=== PATIENT | male | born 1985 | race Caucasian/White ===

== ENCOUNTER 2024-05-05 18:29 | Emergency (ER) | payer OTHER, SELFPAY ==
--- NOTE | 2024-05-05 18:33 | ED.URI ---
HPI - URI/Sore Throat General Chief Complaint: Upper Respiratory Infection Stated Complaint: Sinus Infection Time Seen by Provider: 05/05/24 18:32 Source: patient Mode of arrival: ambulatory Limitations: no limitations History of Present Illness HPI Narrative: Kyle is a 38-year-old male patient presenting to the clinic today with complaints of a possible sinus infection. He reports for the past 3 days he has had some nasal congestion but today he developed sinus pressure over the left maxillary and a fever. Temperature today in the clinic is 38.1. Cough is nonproductive. States he is blowing out some yellow nasal drainage. MD elicited complaint: sore throat and nasal congestion Related Data Allergies Allergy/AdvReac Type Severity Reaction Status Date / Time No Known Allergies Allergy Verified 05/05/24 18:48 Review of Systems Review of Systems: Pertinent positives per HPI. Patient denies any fever, chills, rash, headache, visual changes, dizziness, cough, shortness of breath, chest pain, palpitations, nausea, vomiting, diarrhea, constipation, abdominal pain, or any urinary issues. PMFSH Comments At the time of my signature, I reviewed and agree with the nursing past medical, surgical, social, and family history. There is no relevant family history pertinent to the patient complaint. Exam Narrative: General: Well-developed, well nourished, in no apparent distress Head: Normocephalic, atraumatic Eyes: Pupils equally round and reactive to light bilaterally, EOM intact, sclera and conjunctive clear, no discharge, lids normal Ears: Right TMs intact and clear, left TM intact and congested, ear canals clear, no drainage, grossly hearing normal. Nose: Nares patent, clear nasal discharge, moderate inflammation, left maxillary sinus tenderness. Mouth: Oral pharynx without lesions or masses, good dentition, MMM. Postnasal drip Neck: Supple, trachea midline, no enlargement of anterior or posterior cervical nodes, no thyroid masses or goiter palpable. Cardio: Regular rate and rhythm, s1 and s2 normal, no murmur appreciated. Resp: Clear to auscultation bilaterally, no rhonchi, rales, wheezing or rubs Course Course Emergency Course: Portions of this record may have been created with voice recognition software. Level of Care: Express Care Visit Vital Signs Vital signs: Vital Signs Temperature 38.1 C H 05/05/24 18:45 Pulse Rate 83 05/05/24 18:45 Respiratory Rate 17 05/05/24 18:45 Blood Pressure 136/79 05/05/24 18:45 Pulse Oximetry 99 05/05/24 18:45 Oxygen Delivery Room Air 05/05/24 18:45 Temperature 38.1 C H 05/05/24 18:45 Pulse Rate 83 05/05/24 18:45 Respiratory Rate 17 05/05/24 18:45 Blood Pressure 136/79 05/05/24 18:45 Pulse Oximetry 99 05/05/24 18:45 Oxygen Delivery Room Air 05/05/24 18:45 Vital signs reviewed MDM - URI/Sore Throat MDM Narrative Medical decision making narrative: At the time of visit patient is resting comfortably on the exam table. Patient appears to be nontoxic. Labs: COVID and influenza testing was performed and were negative in the clinic today. Plan: I suspect patient has viral sinusitis. Prescription for prednisone was sent to the pharmacy. Supportive measures were discussed with the patient and they voiced understanding discharge instructions and agrees to treatment plan. Return precautions reviewed Differential Diagnosis Differential diagnosis: Likely upper respiratory infection, otitis media, sinusitis, viral infection, bronchitis, influenza, pharyngitis and other (COVID) Discharge Plan Discharge Clinical Impression: Acute viral sinusitis Patient Disposition: Home, Self-Care Condition: Stable Instructions: Antibiotic Form, Rhinosinusitis (ED) Additional Instructions: Take prescription medications only as prescribed-prednisone Increase fluids and stay well hydrated Tylenol/motrin for pain/fever Flonase and OTC antihistamines as directed Vicks vapor rub to open sinuses Sinus rinses for congestion Cepacol spray, cough drops, throat lozenges, warm tea with honey/lemon, gargle salt water to soothe throat BRAT diet for diarrhea Clear liquids x 24 hours then advance as tolerated for nausea/vomiting Go to the ED if you develop a worsening in your condition- high fever not controlled by Tylenol or Motrin, dehydration, weakness, lethargy, shortness of breath, or chest pain. Follow up with your PCP in 3-5 days if symptoms persist. Patient Language: Tamazight Prescriptions: New prednisone 20 mg tablet 40 mg PO DAILY 5 Days Qty: 10 0RF Follow-up/Referrals: UNKNOWN,DOCTOR [Non-Staff] - Time of Disposition: 18:57 Quality NIHSS Nursing Documentation ED NIHSS nursing documentation: reviewed/agree
--- OUTSIDE RECORDS SUMMARY | 2024-05-05 18:38 | XMS_ITS | Clinical Summary ---
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 Role Phone Shadi Cross DO, Frederick H Primary Care Provider Allergies Active Allergy Reactions Criticality Noted Date Comments Pseudoephedrine Hcl Hives High 03/17/2016 Medications No known medications Active Problems Problem Noted Date Diagnosed Date Acquired deviated nasal septum 03/17/2016 Cervicalgia 03/17/2016 Seasonal allergic rhinitis 03/17/2016 Resolved Problems Problem Noted Date Diagnosed Date Resolved Date Concussion 07/09/2022 Overview (03/17/2016): 2001,2002 playing football, LOC Encounters Date Type Department Care Team Description 04/21/2024 External Device Data [facility] ABSTRACTION Provider, Abstract 04/20/2024 External Device Data [facility] ABSTRACTION Provider, Abstract 04/18/2024 External Device Data [facility] ABSTRACTION Provider, Abstract from Last 3 Months Immunizations Immunization Administration Dates Next Due (ADACEL/BOOSTRIX)(10 YR UP) TDAP VACCINE, 0.5ML, IM 03/17/2016 (PFIZER)(12 YR UP) COVID-19 VACCINE - EMERGENCY USE AUTHORIZATION, MRNA, [id number]) 30 MCG/0.3 ML IM SUSP 11/06/2020,10/14/2020 INFLUENZA VACCINE QUADRIVALE NT 3 YR UP PF IM 11/27/2015 Influenza Seasonal Unspecifi ed Formulation IM 12/08/2023,12/03/2022,12/02/2021,2020,11/19/2019,11/30/2018,11/10/2017,0 11/11/2016 Influenza Vaccine Quad Split 3+ Yrs Im 11/16/2014 Influenza Vaccine Quad Split 3+ Yrs Pf Im 11/13/2013 Family History Medical History Relation Name Comments Healthy Brother autism Heart Disease Father elena Hypertension Father elena Other Father elena afib Diabetes Maternal Aunt Heart Disease Maternal Grandfather sumit deceas ed Diabetes Maternal Uncle Diabetes Mother cindy Heart Disease Mother cindy Colon Cancer Paternal Grandfather marky perez dece ased Relation Name Status Comments Brother Alive Father elena Alive Maternal Aunt Alive Maternal Grandfather sumit Maternal Uncle Alive Mother cindy (Age 54) [place] 2/2 DM Paternal Grandfather marky perez Social History Tobacco Use Types Packs/Day Years Used Date Smoking Tobacco: Never Smokeless Tobacco: Never Tobacco Cessation:Counseling Given: Not Answered Alcohol Use Standard Drinks/Week Comments Yes 0 (1 standard drink = 0.6 oz pure alcohol) once or twice a month; one or two drinks Sex and Gender Information Value Date Recorded Sex Assigned at Not on file Legal Sex Male 10:18 PM CDT Gender Identity Not on file Sexual Orientation Not on file Last Filed Vital Signs Vital Sign Reading Time Taken Comments Blood Pressure 130/78 08/12/2023 2:21 PM CDT Pulse 75 08/12/2023 2:21 PM CDT Temperature 36.4 C (97.5 F) 08/12/2023 2:21 PM CDT Respiratory Rate 20 08/12/2023 2:21 PM CDT Oxygen Saturation 97% 08/12/2023 2:21 PM CDT Inhaled Oxygen Concentration - - Weight 91.2 kg (201 lb) 08/12/2023 2:21 PM CDT Height 175.3 cm (5' 9 ) 08/12/2023 2:21 PM CDT Body Mass Index 29.68 08/12/2023 2:21 PM CDT Plan of Treatment Upcoming Encounters Date Type Department Care Team (Late st Contact Info) Description 08/24/2024 3:00 PM CDT Office Visit [facility] [address] [address] [place] [address] Ramón Hsu Jr., DO [address] [place] [id number] Health Maintenance Due Date Last Done Comments HEPATITIS B VACCINES (1 of 3 - 19+ 3-dose series) 2004 COVID-19 Vaccine (3 - 2023- season) 2023 11/06/2020, 10/14/2020 DTAP/TDAP/TD VACCINES (2 - Td or Tdap) 03/17/2026 03/17/2016 Pre-Diabetes and Diabetes Screening 2026 08/30/2023, 07/24/2022, 08/28/2021, Additional history exists INFLUENZA VACCINE Completed 12/08/2023, , 12/02/2021, Additional history exists HPV VACCINES Aged Out No longer eligi ble based on patient's age to complete this topic Procedures Procedure Name Priority Date/Time Associated Diagnosis Comments HEMOGLOBIN A1C Routine 08/30/2023 6:25 AM CDT Annual physical exam Screening for diabetes mellitus from Last 3 Months or Most Recently Relevant to Health Maintenance Results * (ABNORMAL) HEMOGLOBIN A1C (08/30/2023 6:25 AM CDT) HEMOGLOBIN A1C 5.8(H) <5.7 % of total Hgb Rayo Elias Comment: For someone without known diabetes, a hemoglobin A1c value between 5.7% and 6.4% is consistent with prediabetes and should be confirmed with a follow-up test. For someone with known diabetes, a value <7% indicates that their diabetes is well controlled. A1c targets should be individualized based on duration of diabetes, age, comorbid conditions, and other considerations. This assay result is consistent with an increased risk of diabetes. Currently, no consensus exists regarding use of hemoglobin A1c for diagnosis of diabetes for children. ESTIMATED AVERAGE GLUCOSE (MG/DL) 120 mg/dL Rayo Elias ESTIMATED AVERAGE GLUCOSE (MMOL/L) 6.6 mmol/L Rayo Elias Comment: This test was performed on the Clint mariam c503 platform. Effective 05/02/23, a change in test platforms from the [employer] to the Clint mariam c503 may have shifted HbA1c results compared to historical results. Based on laboratory validation testing conducted at [facility], the Clint platform relative to the [employer] platform had an average increase in HbA1c value of < or = 0.3%. This difference is within accepted variability established by the National Glycohemoglobin Standardization Program. Note that not all individuals will have had a shift in their results and direct comparisons between historical and current results for testing conducted on different platforms is not recommended. 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
[2024-05-05 18:45] VITALS: BP 136/79; PULSE 83; RESP 17; TEMP 38.1; O2SAT 99
[2024-05-05 19:04] LABS: EDCOVIDSCREEN Negative (Negative); EDINFLUASCREEN Negative (Negative); EDINFLUBSCREEN Negative (Negative)
== END 2024-05-05 19:05 | disposition home or self-care (01) ==
LOC: EXPTROY 18:36
PROVIDERS: Emergency Provider Nurse Practitioner Family
DX: J01.90 Acute sinusitis, unspecified (principal); B97.89 Other viral agents as the cause of diseases classified elsewhere; Z20.822 Contact with and (suspected) exposure to COVID-19
CPT/HCPCS: 87426; 87804; 99203; G0463